=== PATIENT | male | born 2000 | race African-American/Black ===

== ENCOUNTER → 2022-07-21 | Outpatient (RCR) | payer OTHER | END | disposition home or self-care (01) | PROVIDERS: ATTEND Family Medicine Sports Medicine | DX: S93.621D Sprain of tarsometatarsal ligament of right foot, subsequent encounter (principal); Y93.61 Activity, american tackle football ==

== ENCOUNTER 2022-08-07 08:32 | Outpatient (RCR) | payer OTHER | END 2022-08-20 | disposition home or self-care (01) | PROVIDERS: ATTEND Family Medicine Sports Medicine | DX: S93.621D Sprain of tarsometatarsal ligament of right foot, subsequent encounter (principal); Y93.61 Activity, american tackle football ==